=== PATIENT | male | born 1950 | race Caucasian/White ===

== ENCOUNTER → 2017-11-26 09:45 | Outpatient (CLI) | payer OTHER ==
[~2017-11-26 09:45] MED LIST: APAP/CODEINE TAB 300; AVAPRO300 MG PO; CYCLOBENZAPRINE10 MG PO; DEXILANT30 MG PO; DOXAZOSIN MESYLATE PO; FOLIC ACID1 MG PO; LATANOPROST 0.005% EACH EYE; PRAVASTATIN SOD10 MG PO; TENORMIN50 MG PO; TIMOPTIC XE 0.5%5 ML EACH EYE; XANAX XR0.5 MG PO
[2017-12-09 12:31] VITALS: BMI 18.6
== END | disposition home or self-care (01) ==
LOC: D.MRI 09:45
DX: R91.1 Solitary pulmonary nodule (principal); J44.9 Chronic obstructive pulmonary disease, unspecified

== ENCOUNTER → 2017-12-03 11:28 | Outpatient (CLI) | payer OTHER | END | disposition home or self-care (01) | LOC: D.RAD 11:28 | DX: S22.079A Unspecified fracture of T9-T10 vertebra, initial encounter for closed fracture (principal); S22.089A Unspecified fracture of T11-T12 vertebra, initial encounter for closed fracture; X58.XXXA Exposure to other specified factors, initial encounter; Y93.9 Activity, unspecified; Y92.019 Unspecified place in single-family (private) house as the place of occurrence of the external cause ==

== ENCOUNTER → 2017-12-04 09:02 | Outpatient (CLI) | payer OTHER | END | disposition home or self-care (01) | LOC: D.MRI 09:02 | DX: S22.079A Unspecified fracture of T9-T10 vertebra, initial encounter for closed fracture (principal); S22.089A Unspecified fracture of T11-T12 vertebra, initial encounter for closed fracture; X58.XXXA Exposure to other specified factors, initial encounter; Y93.89 Activity, other specified; Y92.89 Other specified places as the place of occurrence of the external cause ==

== ENCOUNTER 2017-12-09 11:20 | Outpatient (CLI) | payer OTHER ==
[~2017-12-09] VITALS: Ht 177.8 cm; Wt 59.1 kg
--- NOTE | ~2017-12-09 | HEMODYNAMI ---
PATIENT:ELIJAH GARCÍA MEDICAL RECORD: [id number] : 54 LOCATION:[facility] ADMISSION DATE: 12/09/17 Generatedon:12/09/201715:20 Patient name: ELIJAH GARCÍA Patient #: [id number] SSN: D OB: 1950 Date of study: 12/09/2017 Page: Of Hemodynamic Procedure Report Patient Data Patient Demographics Procedure consent was obtained First Name: ELIJAH Gender: Male Last Name: RAQUEL : 1950 [facility] Initial: RAYMUNDO Age: 66 year(s) Patient #: [id number] Race: Unknown Additional ID: [id number] Contact details [address]: [address] [place] [address] [place] State: [place] City: [place] Zip code: [address] Admission Admission Data Admission Date: 12/09/2017 Admission Time: 11:20 Procedure Procedure Types Cath Procedure Peripheral Cath Diagnostic Procedure Kyphoplasty Kyphoplasty Thoracic Procedure Description Procedure Date Procedure Date: 12/09/2017 Procedure Start Time: 14:12 Procedure Staff Name Function Dmitriy Marcos MD Performing Physician Darrell Aragon RT Monitor Salima Lamar RT Scrub Karen Rodriguez RN Nurse Marek Mckeon MD Additional personnel Procedure Data Cath Procedure Fluoroscopy Diagnostic fluoroscopy Total fluoroscopy Time: time: 15.1 min 15.1 min Diagnostic fluoroscopy Total fluoroscopy dose: 389 dose: 389 mGy mGy Hemodynamics Rest Heart Rate: 70 (bpm) Snapshots Pre Cath Intra NCS Post Cath Vital Signs Time Heart Resp SPO2 etCO2 NIBP (mmHg) Rhythm Pain Sedation Rate (ipm) (%) (mmHg) Status Level (bpm) 13:52:08 75 18 100 26.3 Measuring NSR 0 (11) 10(A) , No pain 13:52:28 72 23 100 21 197/113(148) NSR 0 (11) 10(A) , No pain 13:54:31 69 15 99 27.8 182/101(129) NSR 0 (11) 10(A) , No pain 13:58:57 74 16 100 30.8 190/106(151) NSR 0 (11) 10(A) , No pain 14:03:24 78 27 100 31.6 190/112(142) NSR 0 (11) 10(A) , No pain 14:07:50 73 15 100 15 190/110(153) NSR 0 (11) 10(A) , No pain 14:12:16 64 10 100 21 173/95(133) NSR 0 (11) 10(A) , No pain 14:16:38 63 10 100 23 185/93(149) NSR 0 (11) 10(A) , No pain 14:21:02 61 10 100 20 172/93(114) NSR 0 (11) 10(A) , No pain 14:25:25 61 11 100 21 166/91(139) NSR 0 (11) 10(A) , No pain 14:29:45 60 10 100 16.5 166/88(131) NSR 0 (11) 10(A) , No pain 14:34:07 59 10 100 17.3 152/85(129) NSR 0 (11) 10(A) , No pain 14:38:09 58 10 100 18.8 123/63(108) NSR 0 (11) 10(A) , No pain 14:42:21 58 10 100 21.8 138/64(102) NSR 0 (11) 10(A) , No pain 14:46:37 58 11 100 18 131/68(94) NSR 0 (11) 10(A) , No pain 14:50:51 57 9 100 20.3 128/65(99) NSR 0 (11) 10(A) , No pain 14:55:01 56 9 100 18.8 139/74(97) NSR 0 (11) 10(A) , No pain 14:59:15 56 9 100 21 143/77(107) NSR 0 (11) 10(A) , No pain 15:03:28 55 9 100 18.8 147/80(112) NSR 0 (11) 10(A) , No pain 15:07:49 54 10 100 12 126/70(112) NSR 0 (11) 10(A) , No pain 15:12:05 54 9 100 13.5 112/66(91) NSR 0 (11) 10(A) , No pain 15:16:11 54 11 100 115/75(93) NSR 0 (11) 10(A) , No pain Procedure Log Time Note 13:37:23 Darrell Aragon RT (R) (CV) sent for patient. Start room use. 13:38:29 Marek Mckeon MD present and monitoring patient for TIVA. 13:42:47 Time tracking: Regular hours 13:42:57 Plan of Care:Hemodynamics will remain stable., Cardiac rhythm will remain stable., Comfort level will be maintained., Respiratory function will remain adequate., Patient/ family verbilizes understanding of procedure., Procedure tolerated without complication., Recovers from procedure without complications.. 13:42:58 Correct patient and procedure confirmed by team. 13:43:04 Signed procedure consent form obtained from patient. 13:43:07 Full Disclosure recording started 13:43:09 ECG and BP/O2 sat monitors applied to patient. 13:43:51 SEE ANESTHESIA NOTE FOR PRE PROCEDURE TIVA 13:50:18 Vital chart was started 13:52:34 Baseline sample Acquired. 13:52:45 Use device set IR Diagnostic 13:52:46 Sterile Angiographic Pack opened to sterile field. 13:52:47 Bag Decanter (2002S) opened to sterile field. 14:11:21 Physician arrived 14:11:22 --------ALL STOP TIME OUT------ 14:11:23 Final Timeout: patient, procedure, and site verified with staff and physician. All members of the team are in agreement. 14:11:58 Thoracic area was prepped with dura-prep and draped in sterile fashion 14:12:21 Lumbar area was prepped with dura-prep and draped in sterile fashion 14:12:28 Thoracic site verified by team. 14:12:35 Sedation plan: TIVA Medication:Propofol 14:12:48 Procedure started. 14:12:56 Local anesthetic to Thoracic area with Lidocaine 1% by Dmitriy Marcos MD.INITIAL ACCESS ONLY 14:13:02 Kyphon ASSISTANT CASE MANAGER KIT opened to sterile field. 14:13:03 KYPHON KORY EXPRESS 15/2 CDS SYSTEM opened to sterile field. 14:13:04 KYPHON KORY EXPRESS 10/2 CDS SYSTEM opened to sterile field. 14:13:05 Kyphon BONE BX DEVICE SZ2 opened to sterile field. 15:02:25 Procedure ended.(Physican Out) 15:07:02 Fluoroscopy time 15.10 minutes. 15:07:10 Fluoroscopy dose: 389 mGy 15:07:10 Flurop Dose total: 389 15:07:13 Sharps counted by scrub and verified by R.N. 15:07:16 Insertion/operative site no bleeding no hematoma. 15:07:25 Post-op/insertion site Thoracic area dressed using a 4 x 4 and Tegaderm. 15:07:52 SEE POST TIVA NOTES FROM ANESTHESIA FOR POST TIVA 15:19:41 Report given to Outpatients. 15:19:45 Patient transfered to Outpatients with Stretcher. 15:20:17 Vital chart was stopped Device Usage Item Name Manufacture Quantity Catalog Number Hospital Part Current Mini mal Lot# / Charge Number Stock Stock Serial# Code Sterile Cardinal 1 [id number] Angiographic Health Pack Bag Decanter Microtek 1 [id number] 5 () [employer] Kyphon Medtronic 1 [id number] 5 [id number] ASSISTANT CASE MANAGER KIT KYPHON KORY Medtronic 1 [id number] 5 EXPRESS 15/2 CDS SYSTEM KYPHON KORY Medtronic 1 [id number] [id number] 5 EXPRESS 10/2 CDS SYSTEM Kyphon BONE Medtronic 1 [id number] 5 BX DEVICE SZ2 Signature Audit [place] Stage Time Signature Unsigned Intra-Procedure 12/09/2017 Darrell 3:20:14 PM Margo RT (R) (CV) Signatures Monitor : Darrell Signature : Margo RT Date : Time : [address] [address]
[2017-12-09] MEDS ORDERED: AVAPRO300 MG PO (11:52)
[2017-12-09] MEDS ORDERED: APAP/CODEINE TAB 300 (11:53)
[2017-12-09] MEDS ORDERED: TENORMIN50 MG PO (11:53)
[2017-12-09] MEDS ORDERED: CYCLOBENZAPRINE10 MG PO (11:54)
[2017-12-09] MEDS ORDERED: XANAX XR0.5 MG PO (11:55)
[2017-12-09] MEDS ORDERED: DEXILANT30 MG PO (11:55)
[2017-12-09] MEDS ORDERED: FOLIC ACID1 MG PO (11:56)
[2017-12-09] MEDS ORDERED: PRAVASTATIN SOD10 MG PO (11:56)
[2017-12-09] MEDS ORDERED: TIMOPTIC XE 0.5%5 ML EACH EYE (11:57)
[2017-12-09] MEDS ORDERED: LATANOPROST 0.005% EACH EYE (11:58)
[2017-12-09] MEDS ORDERED: DOXAZOSIN MESYLATE PO (12:03)
[2017-12-09 12:11] LABS: BASOPHILS 0.5 % (0-2); EOSINOPHILS 7.9 % (0-7); HEMATOCRIT 40.2 % (42.0-54.0); HEMOGLOBIN 13.7 g/dL (13.5-17.5); IMMATURE GRANULOCYTES 0.2 % (0-5); LYMPHOCYTES 27.1 % (15-50); MCH 34.1 pg (26.0-34.0); MCHC 34.1 g/dL (31.0-37.0); MEAN PLATELET VOLUME 9.7 fL (7.4-10.4); MONOCYTES 10.8 % (2-11); NEUTROPHILS 53.5 % (40-80); PLATELET COUNT 416 10x3/uL (130-400); RBC 4.02 10x6/uL (4.20-6.10); RDW 11.9 % (11.5-14.5); WBC 9.3 10x3/uL (4.8-10.8)
[2017-12-09 12:26] LABS: CALC OSMOLALITY 267 mosm/kg (275-300); CALCIUM 9.8 mg/dL (8.5-10.1); CARBON DIOXIDE 28.8 mmol/L (21.0-32.0); CHLORIDE - SERUM 98 mmol/L (98-107); CREATININE - SERUM 0.9 mg/dL (0.6-1.3); GLUCOSE 82 mg/dL (74-106); SODIUM 135 mmol/L (136-145); UREA NITROGEN 10 mg/dL (7-18); eGFR NON AFRICAN AMERICAN 90 mL/min (90-120)
[2017-12-09 12:31] VITALS: BP 138/77; Ht 177.8 cm; Wt 59.1 kg
[2017-12-09 12:34] LABS: APTT 33.2 SECONDS (22.8-39.4); INR 0.97 (0.85-1.17); PROTIME 12.5 SECONDS (11.6-15.0)
[2017-12-09 13:41] LABS: APPEARANCE CLEAR (CLEAR); BILIRUBIN NEGATIVE (NEGATIVE); COLOR YELLOW (YELLOW); GLUCOSE NEGATIVE (NEGATIVE); KETONE NEGATIVE (NEGATIVE); NITRITE NEGATIVE (NEGATIVE); PROTEIN NEGATIVE (NEGATIVE); UROBILINOGEN NORMAL (NORMAL)
== END 2017-12-09 18:05 | disposition home or self-care (01) ==
LOC: D.OPS 11:20 → D.RAD 13:30 → D.OPS 13:30
PROVIDERS: Specialist
DX: M80.88XA Other osteoporosis with current pathological fracture, vertebra(e), initial encounter for fracture (principal); Z01.812 Encounter for preprocedural laboratory examination

== ENCOUNTER → 2017-12-12 10:49 | Outpatient (CLI) | payer OTHER ==
[2017-12-09 12:31] VITALS: BMI 18.6
== END | disposition home or self-care (01) ==
LOC: D.RAD 10:49
DX: M25.511 Pain in right shoulder (principal); Z91.81 History of falling

== ENCOUNTER 2018-04-21 12:10 | Outpatient (CLI) | payer OTHER ==
[~2018-04-21] VITALS: Ht 177.8 cm; Wt 63.6 kg
[2018-04-21 12:44] VITALS: BP 136/81; Ht 177.8 cm; Wt 63.6 kg
== END 2018-04-21 12:54 | disposition home or self-care (01) ==
LOC: D.OPS 12:10
DX: M81.0 Age-related osteoporosis without current pathological fracture (principal)

== ENCOUNTER 2018-10-29 12:41 | Outpatient (CLI) | payer OTHER ==
[~2018-10-29] VITALS: Ht 177.8 cm; Wt 63.6 kg
[2018-10-29 13:02] VITALS: BP 118/74; Ht 177.8 cm; Wt 63.6 kg
== END 2018-10-29 13:45 | disposition home or self-care (01) ==
LOC: D.OPS 12:41
DX: M81.0 Age-related osteoporosis without current pathological fracture (principal)

== ENCOUNTER 2019-05-05 10:24 | Outpatient (CLI) | payer OTHER ==
[~2019-05-05] VITALS: Ht 177.8 cm; Wt 61.4 kg
[2019-05-05 10:48] VITALS: Ht 177.8 cm; Wt 61.4 kg
--- NOTE | 2019-05-05 11:05 | NUR ---
DC'D HOME WITH FAMILY VIA PRIVATE VEHICLE. STABLE AT TIME OF DC.
== END 2019-05-05 11:05 | disposition home or self-care (01) ==
LOC: D.OPS 10:24
PROVIDERS: ATTEND Family Medicine
DX: M18.0 Bilateral primary osteoarthritis of first carpometacarpal joints (principal)

== ENCOUNTER 2019-10-24 21:13 | Observation (INO) | payer OTHER, MEDICARE ==
[~2019-10-24] VITALS: Ht 177.8 cm; Wt 61.2 kg
[2019-10-24 22:00] VITALS: BP 139/74
[2019-10-24 23:13] LABS: BASOPHILS 0.4 % (0-2); EOSINOPHILS 3.4 % (0-7); HEMATOCRIT 34.4 % (42.0-54.0); HEMOGLOBIN 11.9 g/dL (13.5-17.5); IMMATURE GRANULOCYTES 0.4 % (0-5); LYMPHOCYTES 17.7 % (15-50); MCH 34.4 pg (26.0-34.0); MCHC 34.6 g/dL (31.0-37.0); MCV 99.4 fL (80.0-100.0); MEAN PLATELET VOLUME 8.6 fL (7.4-10.4); MONOCYTES 16.9 % (2-11); NEUTROPHILS 61.2 % (40-80); RBC 3.46 10x6/uL (4.20-6.10); RDW 12.2 % (11.5-14.5); WBC 9.5 10x3/uL (4.8-10.8)
[2019-10-24 23:18] LABS: PLATELET COUNT 261 10x3/uL (130-400)
[2019-10-24 23:21] LABS: CALC OSMOLALITY 250 mosm/kg (275-300); CALCIUM 8.5 mg/dL (8.5-10.1); CARBON DIOXIDE 18.3 mmol/L (21.0-32.0); CHLORIDE - SERUM 92 mmol/L (98-107); CREATININE - SERUM 1.1 mg/dL (0.6-1.3); GLUCOSE 75 mg/dL (74-106); POTASSIUM - SERUM 4.3 mmol/L (3.5-5.1); SODIUM 124 mmol/L (136-145); UREA NITROGEN 17 mg/dL (7-18); eGFR NON AFRICAN AMERICAN 71 mL/min (90-120)
[2019-10-24 23:34] LABS: ALBUMIN 3.6 g/dL (3.4-5.0); ALKALINE PHOSPHATASE 44 U/L (46-116); ALT (SGPT) 22 U/L (10-68); CREATINE KINASE 82 UL (21-232); MAGNESIUM - SERUM 1.2 mg/dL (1.8-2.4); PROTEIN - SERUM 7.1 g/dL (6.4-8.2); TROPONIN-I < 0.017 ng/mL (0.000-0.060)
[2019-10-25 00:39] VITALS: BP 160/62; BMI 19.4
[2019-10-25 00:55] LABS: PRO BNP 180 pg/mL (0-125)
[2019-10-25 04:27] LABS: APPEARANCE CLEAR (CLEAR); COLOR YELLOW (YELLOW); SPECIFIC GRAVITY 1.015 (1.005-1.020)
[2019-10-25 04:28] LABS: BILIRUBIN NEGATIVE (NEGATIVE); GLUCOSE NEGATIVE (NEGATIVE); KETONE NEGATIVE (NEGATIVE); NITRITE NEGATIVE (NEGATIVE); PROTEIN TRACE mg/dL (NEGATIVE); UROBILINOGEN NORMAL (NORMAL)
[2019-10-25 05:21] VITALS: BP 132/74
--- NOTE | 2019-10-25 07:57 | NUR ---
AWAKE AND ALERT. ORIENTED X3. NO C/O AT THIS TIME. LUNGS ARE CLEAR BILATERALLY, NO COUGH NOTED. SKIN IS INTACT WITHOUT REDNESS. IV TO LEFT HAND IS PATENT WITHOUT REDNESS AT INSERTION SITE. AT BEDSIDE. DENIES NEEDS.
[2019-10-25 08:25] VITALS: BP 145/75
--- NOTE | 2019-10-25 08:45 | NUR ---
OFF UNIT FOR MRI
--- NOTE | 2019-10-25 09:15 | NUR ---
RETURNED FROM MRI. BREAKFAST WARMED AND SERVED IN ROOM. AT BESIDE.
[2019-10-25 11:35] LABS: ANION GAP 15.6 mmol/L (8-16); CALCIUM 8.2 mg/dL (8.5-10.1); CARBON DIOXIDE 19.6 mmol/L (21.0-32.0); CREATININE - SERUM 1.2 mg/dL (0.6-1.3); POTASSIUM - SERUM 4.2 mmol/L (3.5-5.1)
[2019-10-25 12:44] VITALS: Ht 177.8 cm; Wt 61.2 kg
[2019-10-25 14:20] VITALS: BP 152/77
--- NOTE | 2019-10-25 17:12 | HP ---
PATIENT: ELIJAH GARCÍA MEDICAL RECORD: [id number] ACCOUNT: [id number] LOCATION:D[id number] : 54 ADMISSION DATE: 10/24/19 PCP: THALIA HEBERT MD HISTORY AND PHYSICAL EXAMINATION REASON FOR ADMISSION: Syncopal episodes. HISTORY OF PRESENT ILLNESS: The patient is a 68-year-old male with history of anemia of chronic disease, COPD. He states that he had a cough productive of clear sputum for 24 hours. He then developed diarrhea for 24 hours, about 6-10 clear stools. He took a shower the evening of admission and it was rather hot. He got out of the shower, he felt lightheaded. He does not remember anything until waking up in his bed. His states that she felt like his bath was going to long, walked into the bathroom, he was sitting on the commode and passed out lying against the wall. She said he had acrocyanosis. She called Dr. Marcos, who is a neighbor and when he came over, the pressure was 100/60 once he had been transferred to his bed supine. The patient awaken there, had no signs of seizure activity or incontinence. He denied chest pain. He denied fever. He was brought to the ED and admitted for presumed pneumonia. 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 PAST SURGICAL HISTORY: CT-guided vertebroplasty T10 and T12 in 2019, repair of inguinal hernia. She biopsy of left ear with squamous cell carcinoma in situ, bilateral inguinal hernia repairs. SOCIAL HISTORY: Socially, smokes a pack of cigarettes a day, drinks moderate to heavy alcohol in the form of beer daily, but says, none recently. , retired from [employer]. FAMILY HISTORY: Father from cancer. Mother from cancer and CHF. Mother due to renal cell carcinoma. HOME MEDICATIONS: Dexilant 30 mg daily, levothyroxine 50 mcg p.o. q.a.m. a.c., Atenolol 50 mg a day, doxazosin 2 mg at bedtime, alprazolam 0.25 1/2-1 daily for anxiety, Sildenafil 20 mg tablet 2-3 p.r.n. intercourse, folic acid 1 mg a day, irbesartan 300 mg a day, Megace 40 mg daily, calcium carbonate with vitamin D 600 b.i.d. p.c., and some Prolia therapy. ALLERGIES: None known. REVIEW OF SYSTEMS: GENERAL: He felt fatigued over the weekend due to diarrhea and cough. Denies fever. HEENT: No recent visual change, sinus congestion, or sore throat. RESPIRATORY: Has chronic mild exertional dyspnea, has had cough productive of clear sputum over the weekend. No fever. No hemoptysis. CARDIAC: No palpitation, PND, or orthopnea. GASTROINTESTINAL: No change in stools or blood per rectum. GENITOURINARY: Nocturia once or twice nightly, improved with alpha-kofi. No dysuria. HISTORY AND PHYSICAL [id number] ELIJAH GARCÍA INTEGUMENT: No new rash appreciated. Denies itching of skin. PSYCHIATRIC: Denies depressed mood. NEUROLOGIC: Denies headaches, seizures, history of prior head injury, although he has had a syncopal episode in a very hot tub in the past. PHYSICAL EXAMINATION: GENERAL: The patient is now alert and oriented, wanting to go home from the hospital. VITAL SIGNS: Show a temp of 96.1 Fahrenheit orally, pulse 62 and regular, respirations 13, blood pressure 137/79 with a sat of 99% on room air. HEENT: Eyes are clear. Oropharynx unremarkable. NECK: No bruits appreciated. Thyroid unremarkable. CHEST: Distant breath sounds without wheeze or rales. HEART: Regular rate and rhythm. ABDOMEN: Soft, nontender. GENITOURINARY: Deferred. EXTREMITIES: No CC&E. NEUROLOGICAL: Oriented to person, place, and time. Cranial nerves intact. Gait is normal. Motor is intact. LABORATORY DATA: Magnesium low at 1.2. ProBNP is 180. Sodium is 124. BUN and creatinine are 17 and 1.1, anion gap is elevated at 18. White count 9500, H&H 11.9 and 34.4 with normal diff. DIAGNOSTIC DATA: CT of the brain shows atrophy, diffuse deep white matter disease and evidence of an old right lacunar infarct. Chest x-ray shows COPD changes. ASSESSMENT: 1. Syncopal episode. 2. Recent gastroenteritis and bronchitis, possibly exacerbating #1. 3. History of vasovagal syncope in the past. 4. Right lacunar infarct, new from 2013. 4. Hypomagnesemia. 5. Hyponatremia. 6. Anemia of chronic disease, stable. 7. Chronic obstructive pulmonary disease, mild exacerbation. PLAN: Chest x-ray shows some atelectasis only. I do not think he has pneumonia. We will taper his steroids and antibiotics appropriately. We will evaluate for syncope and lacunar infarct with an MRI of the brain, carotid Doppler, echocardiogram and telemetry, continuous. We will replace electrolyte abnormalities and fluid restrict at this time. TRANSINT:[id number] Voice Confirmation ID: [id number] DOCUMENT ID: [id number] HISTORY AND PHYSICAL [id number] ELIJAH GARCÍA TIMOTHY MD at 1712 CC: [id number] DICTATION DATE: 10/25/19816 [facility] DEVELOPER: 10/25/19 0947 ADM IN [facility] [address] [id number]
[2019-10-25 17:23] VITALS: BP 130/69
--- NOTE | 2019-10-25 19:27 | NUR ---
HAD A SLIGHT TEMP EARLIER. DENIES NEEDS. NO CHANGES NOTED.
--- NOTE | 2019-10-25 20:00 | NUR ---
A/O WITH NO SIGNS OF DISTRESS. IV TO THE LT HAND WITH NO REDNESS OR SWELLING NOTED. AT BEDSIDE. DENIES NO NEEDS AT THIS TIME. CONTINUE PLAN OF CARE.
[2019-10-25 20:37] VITALS: BP 138/70
--- NOTE | 2019-10-26 | NUR ---
RESTING IN BED. BREATHING EVEN AND NON LABORED. REQUESTED TO SKIP MD VITALS. WILL MONITOR CLOSELY.
[2019-10-26 04:28] VITALS: BP 107/56
[2019-10-26 05:59] LABS: ANION GAP 16.2 mmol/L (8-16); CALCIUM 7.8 mg/dL (8.5-10.1); CARBON DIOXIDE 19.8 mmol/L (21.0-32.0); CREATININE - SERUM 1.1 mg/dL (0.6-1.3); MAGNESIUM - SERUM 1.6 mg/dL (1.8-2.4)
[2019-10-26 06:39] LABS: BASOPHILS 0.1 % (0-2); EOSINOPHILS 0.6 % (0-7); HEMATOCRIT 31.6 % (42.0-54.0); IMMATURE GRANULOCYTES 0.2 % (0-5); LYMPHOCYTES 29.7 % (15-50); MCH 34.1 pg (26.0-34.0); MCHC 34.8 g/dL (31.0-37.0); MCV 97.8 fL (80.0-100.0); MEAN PLATELET VOLUME 8.3 fL (7.4-10.4); MONOCYTES 12.4 % (2-11); RBC 3.23 10x6/uL (4.20-6.10); RDW 12.4 % (11.5-14.5); WBC 9.1 10x3/uL (4.8-10.8)
[2019-10-26 06:40] LABS: PLATELET COUNT 314 10x3/uL (130-400)
[2019-10-26] MEDS ORDERED: MAG-OX 400 MG400 MG PO (07:14)
--- NOTE | 2019-10-26 08:03 | NUR ---
FAMILY IS AT BEDSIDE. PT IS RESTING,WITHOUT SIGNS OF DISTRESS.
[2019-10-26 08:53] VITALS: BP 113/63
--- NOTE | 2019-10-26 09:30 | NUR ---
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
--- NOTE | 2019-10-26 10:09 | NUR ---
WENT OVER DC INSTRUCTIONS WITH PT AND SPOUSE ALL QUESTIONS ANSWERED DC IV WITH CATH INTACT. PT TAKEN DOWN VIS WC
== END 2019-10-26 11:42 | disposition home or self-care (01) ==
LOC: D.ER 21:13 → OBSVTIME 22:51 → D.MS 22:51
PROVIDERS: Emergency Medicine; ADMIT Family Medicine; ATTEND Family Medicine
DX: R55 Syncope and collapse (principal); E87.1 Hypo-osmolality and hyponatremia; J44.1 Chronic obstructive pulmonary disease with (acute) exacerbation; Z86.73 Personal history of transient ischemic attack (TIA), and cerebral infarction without residual deficits; E83.42 Hypomagnesemia; M19.90 Unspecified osteoarthritis, unspecified site; N40.0 Benign prostatic hyperplasia without lower urinary tract symptoms; E78.5 Hyperlipidemia, unspecified; K21.9 Gastro-esophageal reflux disease without esophagitis; I10 Essential (primary) hypertension; E03.9 Hypothyroidism, unspecified

== ENCOUNTER 2019-11-16 14:03 | Outpatient (CLI) | payer OTHER ==
[~2019-11-16] VITALS: Ht 177.8 cm; Wt 61.4 kg
[~2019-11-16 14:03] MED LIST changes: +MAG-OX 400 MG400 MG PO
[2019-11-16 14:20] VITALS: BP 132/64; Ht 177.8 cm; Wt 61.4 kg
--- NOTE | 2019-11-16 14:26 | NUR ---
PT DC INSTRUCTIONS REVIEWED AT THIS TIME, PT VERBALIZES UNDERSTANDING.
--- NOTE | 2019-11-16 14:30 | NUR ---
PT LEAVING OPS AT THIS TIME, NAD NOTED.
== END 2019-11-16 14:30 | disposition home or self-care (01) ==
LOC: D.OPS 14:03
PROVIDERS: ATTEND Family Medicine
DX: M81.0 Age-related osteoporosis without current pathological fracture (principal)

== ENCOUNTER 2020-05-17 12:34 | Outpatient (CLI) | payer OTHER ==
[~2020-05-17] VITALS: Ht 177.8 cm; Wt 60.9 kg
[2020-05-17 12:50] VITALS: BP 142/85; Ht 177.8 cm; Wt 60.9 kg
== END 2020-05-17 12:55 ==
LOC: D.OPS 12:34
PROVIDERS: ATTEND Family Medicine
DX: M81.0 Age-related osteoporosis without current pathological fracture (principal)